=== PATIENT | female | born 1965 | race Caucasian/White ===

== ENCOUNTER 2018-11-19 09:31 | Day surgery (SDC) | payer OTHER ==
[~2018-11-19] VITALS: Ht 160 cm; Wt 81.8 kg
[~2018-11-19 09:31] MED LIST: LIDOCAINE 2% (SDV) 5 ML INJ ONE
[2018-11-19] MEDS ORDERED: XANAX (10:12)
[2018-11-19] MEDS ORDERED: ALBENDAZOLE (10:12)
[2018-11-19] MEDS ORDERED: METHADONE (10:12)
[2018-11-19 10:21] VITALS: Ht 160 cm; Wt 81.8 kg
[2018-11-19] MEDS ORDERED: PROPOFOL 40 ML ONE (10:22)
--- NOTE | 2018-11-19 10:24 | PREAC ---
Date/Time of Note Date/Time of Note DATE: 11/19/18 TIME: Anesthesia Eval and Record Evaluation Time Pre-Procedure Interview DATE: 11/19/18 TIME: 10:19 Age 53 Sex female NPO: 8 hrs Preoperative diagnosis screening Planned procedure Colonoscopy Past Medical History Past Medical History: Includes Psych: Anxiety, Other (chronic pain meds for back pain) Surgery & Anesthesia Issues No known issue Meds Anticoagulation: No Beta Ra within 24 hr: No Reason Beta Ra not given: Pt. not on B-Ra Reported Medications [Methadone] No Conflict Check 11/19/18 [Albendazole] No Conflict Check 11/19/18 [Xanax] No Conflict Check 11/19/18 Meds reviewed: Yes Allergies Coded Allergies: No Known Allergy (Unverified , 11/19/18) Allergies Reviewed: Yes Labs/Studies Labs Reviewed: Other test: N/A Pre-procedure Exam Airway: Adequate mouth opening (upper parital only 4 bottom teeth), Adequate thyromental dist Mallampati: Mallampati II Teeth: Normal Lung: Normal Heart: Normal ASA Physical Status ASA physical status: 2 Emergency: None Planned Anesthetic General/MAC: MAC, TIVA Planned Pain Management Parenteral pain med Pre-operative Attestations Prior to commencing anesthesia and surgery, the patient was re-evaluated, there was verification of: *The patient's identity *The results of appropriate recent lab work and preoperative vital signs *The above evaluation not changing prior to induction *Anesthetic plan, risk benefits, alternative and complications discussed with patient/family; questions answered; patient/family understands, accepts and wishes to proceed. DUDLEY MATSON CRNA Nov 19, 2018 10:24
[2018-11-19 10:26] VITALS: BP 137/62; PULSE 84; RESP 20
[2018-11-19] MEDS ORDERED: HYDROmorphONE 1 MG/5 ML IV SYRINGE IV PRN (10:30)
[2018-11-19] MEDS ORDERED: OXYCODONE/ACETAMINOPHEN (5/325) TAB PO PRN (10:30)
[2018-11-19] MEDS ORDERED: FENTAnyl 50 MCG/ML VIAL IV PRN (10:30)
[2018-11-19] MEDS ORDERED: ONDANSETRON 4 MG INJ IV PRN (10:30)
--- NOTE | 2018-11-19 10:53 | PAC ---
Date/Time of Note Date/Time of Note DATE: 11/19/18 TIME: 10:52 Post-Anesthesia Notes Post-Anesthesia Note Last documented vital signs Vital Signs Date Temp Pulse Resp B/P (MAP) Pulse Ox O2 O2 Flow FiO2 Time Delivery Rate 11/19/18 97.4 84 20 137/62 97 Room Air 10:26 (87) Activity: WNL Respiratory function: WNL Cardiovascular function: WNL Mental status: Baseline Pain reasonably controlled: Yes Hydration appropriate: Yes Nausea/Vomiting absent: Yes Comments BP: 114/55 HR: 87 RR: 15 T: 98 SaO2: 95% KEVEN SHERMAN MD Nov 19, 2018 10:53
[2018-11-19 11:11] VITALS: BP 126/60; PULSE 80; RESP 14
[2018-11-19] MEDS ORDERED: EPHEDrine 25 MG/5 ML SYG ONE (11:38)
== END 2018-11-19 15:25 | disposition home or self-care (01) ==
LOC: GIL 09:31
PROVIDERS: ATTEND Internal Medicine Gastroenterology
DX: Z12.11 Encounter for screening for malignant neoplasm of colon (principal); D12.5 Benign neoplasm of sigmoid colon; K64.4 Residual hemorrhoidal skin tags
CPT/HCPCS: 45385; 88305; Z7610

== ENCOUNTER 2019-04-20 10:30 | Day surgery (SDC) | payer OTHER ==
[~2019-04-20] VITALS: Ht 160 cm; Wt 74.3 kg
[~2019-04-20 10:30] MED LIST changes: +ALBENDAZOLE; -LIDOCAINE 2% (SDV) 5 ML INJ ONE; +METHADONE; +PROBIOTICS; +VITAMINS; +XANAX
[2019-04-20 11:00] VITALS: Ht 160 cm; Wt 74.3 kg
[2019-04-20] MEDS ORDERED: NA PHOSPHATE/BIPHOS 133 ML ENEMA PR STA (11:03)
[2019-04-20 11:08] VITALS: BP 136/63; PULSE 67; RESP 25
[2019-04-20] MEDS ORDERED: PROPOFOL 20 ML ONE (12:15)
[2019-04-20] MEDS ORDERED: FENTAnyl 50 MCG/ML VIAL ONE (12:15)
[2019-04-20 13:55] VITALS: BP 121/61; RESP 20
== END 2019-04-20 13:54 | disposition home or self-care (01) ==
LOC: GIL 10:30
PROVIDERS: ATTEND Internal Medicine Gastroenterology
DX: K63.89 Other specified diseases of intestine (principal); F17.200 Nicotine dependence, unspecified, uncomplicated
CPT/HCPCS: 45378; J3010; Z7610